=== PATIENT | female | born 1945 | race Caucasian/White ===

== ENCOUNTER 2017-01-22 14:47 | Emergency (ER) | payer OTHER ==
[2017-01-22 15:32] LABS: HEMOGLOBIN 12.4 gm/dl (12.3-15.3); RED BLOOD COUNT 4.07 M/UL (4.00-5.10); WHITE BLOOD COUNT 11.5 K/UL (4.5-11.0)
[2017-01-22 16:02] LABS: BUN/CREATININE RATIO 21 (0-10)
== END 2017-01-22 18:22 | disposition home or self-care (01) ==
LOC: ER1 14:47
PROVIDERS: Physician Assistant
DX: N39.0 Urinary tract infection, site not specified (principal); R06.02 Shortness of breath; E11.9 Type 2 diabetes mellitus without complications; E03.9 Hypothyroidism, unspecified; Z79.899 Other long term (current) drug therapy
CPT/HCPCS: 36415; 71010; 80053; 81001; 83605; 84484; 85025; 87040; 87077; 87086; 87186; 93005; 96361; 96365; 99285; J0696; J7050

== ENCOUNTER → 2020-05-09 | Outpatient (CLI) | payer OTHER | LOC: LAB 11:45 | DX: N39.0 Urinary tract infection, site not specified (principal) | CPT/HCPCS: 36415; 87086 ==

== ENCOUNTER → 2020-09-21 | Outpatient (CLI) | payer OTHER ==
[2020-09-21 10:11] LABS: HEMOGLOBIN 13.1 gm/dl (12.3-15.3); RED BLOOD COUNT 4.2 M/UL (4.00-5.10); WHITE BLOOD COUNT 6.3 K/UL (4.5-11.0)
[2020-09-21 16:10] LABS: BUN/CREATININE RATIO 23 (0-10)
[2020-09-22 09:14] LABS: THYROXINE (T4) 9.2 ug/dL (4.5-12.0)
== END ==
LOC: LAB 09:09
PROVIDERS: Nurse Practitioner Family
DX: R53.82 Chronic fatigue, unspecified (principal); R63.4 Abnormal weight loss; E11.9 Type 2 diabetes mellitus without complications; D51.9 Vitamin B12 deficiency anemia, unspecified; E55.9 Vitamin D deficiency, unspecified
CPT/HCPCS: 36415; 80053; 80061; 81001; 82607; 84436; 84443; 84480; 85025

== ENCOUNTER → 2020-11-30 | Outpatient (CLI) | payer OTHER | LOC: LAB 14:21 | DX: E03.9 Hypothyroidism, unspecified (principal) | CPT/HCPCS: 36415; 84436; 84443 ==

== ENCOUNTER → 2020-12-12 | Outpatient (CLI) | payer OTHER | LOC: KOH-I 11:01 | DX: S92.352A Displaced fracture of fifth metatarsal bone, left foot, initial encounter for closed fracture (principal); X58.XXXA Exposure to other specified factors, initial encounter | CPT/HCPCS: 73630 ==

== ENCOUNTER → 2020-12-26 | Outpatient (CLI) | payer OTHER ==
[2020-12-26 10:44] LABS: HEMOGLOBIN 12.9 gm/dl (12.3-15.3); RED BLOOD COUNT 4.24 M/UL (4.00-5.10); WHITE BLOOD COUNT 6.2 K/UL (4.5-11.0)
[2020-12-26 11:23] LABS: BUN/CREATININE RATIO 19 (0-10)
[2020-12-27 08:14] LABS: THYROXINE (T4) 10.3 ug/dL (4.5-12.0)
== END ==
LOC: LAB 09:12
PROVIDERS: Nurse Practitioner Family
DX: E11.9 Type 2 diabetes mellitus without complications (principal); E03.9 Hypothyroidism, unspecified; E78.5 Hyperlipidemia, unspecified; R53.82 Chronic fatigue, unspecified
CPT/HCPCS: 36415; 80053; 80061; 81001; 83036; 84436; 84443; 84480; 85025

== ENCOUNTER → 2021-01-02 | Outpatient (CLI) | payer OTHER | LOC: KOH-I 10:54 | DX: S92.352A Displaced fracture of fifth metatarsal bone, left foot, initial encounter for closed fracture (principal) | CPT/HCPCS: 73630 ==

== ENCOUNTER → 2021-01-25 | Outpatient (CLI) | payer OTHER | LOC: KOH-I 10:46 | DX: S92.342A Displaced fracture of fourth metatarsal bone, left foot, initial encounter for closed fracture (principal); S92.352A Displaced fracture of fifth metatarsal bone, left foot, initial encounter for closed fracture | CPT/HCPCS: 73630 ==

== ENCOUNTER → 2021-02-15 | Outpatient (CLI) | payer OTHER | LOC: EXRD 11:08 | DX: R05.3 Chronic cough (principal); R13.10 Dysphagia, unspecified | CPT/HCPCS: 71046 ==

== ENCOUNTER → 2021-02-22 | Outpatient (CLI) | payer OTHER | LOC: KOH-I 09:36 | DX: S92.342A Displaced fracture of fourth metatarsal bone, left foot, initial encounter for closed fracture (principal); S92.352D Displaced fracture of fifth metatarsal bone, left foot, subsequent encounter for fracture with routine healing | CPT/HCPCS: 73630 ==

== ENCOUNTER → 2021-03-07 | Outpatient (CLI) | payer OTHER | LOC: KOH-I 13:00 | DX: R13.10 Dysphagia, unspecified (principal); E04.2 Nontoxic multinodular goiter | CPT/HCPCS: 76536 ==

== ENCOUNTER → 2021-03-12 | Outpatient (CLI) | payer OTHER | LOC: KOH-I 03-01 11:00 | DX: R10.84 Generalized abdominal pain (principal); R63.0 Anorexia; R13.10 Dysphagia, unspecified; R63.4 Abnormal weight loss; K76.89 Other specified diseases of liver; N28.1 Cyst of kidney, acquired | CPT/HCPCS: 76700 ==

== ENCOUNTER → 2021-03-15 | Outpatient (CLI) | payer OTHER | LOC: HEART 5 09:11 | DX: R05.3 Chronic cough (principal); R06.02 Shortness of breath | CPT/HCPCS: 94010 ==

== ENCOUNTER → 2021-04-04 | Day surgery (SDC) | payer OTHER ==
[~2021-04-04] MED LIST: AZELASTINE137 MCG/0.; CLOTRIMAZOLE10 MG MM; DICLOFENAC PO; FEXOFENADINE H180 MG PO; FLONASE 0.05% N16 GM; LEVOFLOXACIN750 MG PO; LEVOTHYROXINE50 MC1 PO; MEGACE TAB 40 M40 MG PO; METFORMIN HCL500 MG PO; MONTELUKAST SOD10 MG PO; OMEPRAZOLE10 MG PO; PRAVASTATIN SOD10 MG PO
== END | disposition home or self-care (01) ==
LOC: OR 07:18
DX: K22.2 Esophageal obstruction (principal); R05.9 Cough, unspecified; K44.9 Diaphragmatic hernia without obstruction or gangrene; E11.9 Type 2 diabetes mellitus without complications; Z20.822 Contact with and (suspected) exposure to COVID-19
CPT/HCPCS: 82962; J2704; J7040

== ENCOUNTER → 2021-04-24 | Outpatient (CLI) | payer OTHER | LOC: LBRF 15:43 | DX: N39.0 Urinary tract infection, site not specified (principal) | CPT/HCPCS: 87086 ==